=== PATIENT | female | born 1985 | race African-American/Black ===

== ENCOUNTER 2017-04-17 21:10 | Emergency (ER) | payer MEDICAID, OTHER ==
[~2017-04-17] VITALS: Ht 167.6 cm; Wt 61.8 kg
[2017-04-17 21:16] VITALS: Ht 167.6 cm; Wt 61.8 kg
[2017-04-17 21:44] VITALS: BP 112/58; PULSE 67; RESP 18; TEMP 97.8
--- NOTE | 2017-04-17 21:44 | ERD ---
ER Documentation Chief Complaint Chief Complaint BIBA [id number],for med clearance,c/o gen pain,hx HIV positive,in [employer] custody HPI This is a 31-year-old female here with police custody for medical clearance. Patient complains of generalized body pain. Denies specific complaints. History of HIV. ROS All systems reviewed and are negative except as per history of present illness. Allergies Allergies: Coded Allergies: aspirin (Verified Allergy, Unknown, 04/17/17) latex (Verified Allergy, Unknown, 04/17/17) morphine (Verified Allergy, Unknown, 04/17/17) Physical Exam Vitals Vital Signs Date Time Temp Pulse Resp B/P Pulse Ox O2 Delivery O2 Flow Rate FiO2 04/17/17 21:16 98.4 102 18 130/85 100 Physical Exam Const: [] Head: Atraumatic Eyes: Normal Conjunctiva ENT: Normal External Ears, Nose and Mouth. Neck: Full range of motion..~ No meningismus. Resp: Clear to auscultation bilaterally Cardio: Regular rate and rhythm, no murmurs Abd: Soft, non tender, non distended. Normal bowel sounds Skin: No petechiae or rashes Back: No midline or flank tenderness Ext: No cyanosis, or edema Neur: Awake and alert Psych: Normal Mood and Affect Procedures/MDM Medical decision-makin-year-old female here for generalized pain. At this point medically cleared for police custody Departure Diagnosis: Primary Impression: Medical clearance for incarceration Condition: Stable Patient Instructions: Intermediate Clearance DOLORES MOULTON Apr 17, 2017 21:44
== END 2017-04-17 22:08 | disposition home or self-care (01) ==
LOC: E/R 21:10
DX: Z02.89 Encounter for other administrative examinations (principal); Z91.040 Latex allergy status
CPT/HCPCS: 99282